=== PATIENT | male | born 1995 | race Caucasian/White ===

== ENCOUNTER 2016-11-06 11:05 | Emergency (ER) | payer SELFPAY ==
[~2016-11-06] VITALS: Ht 175.3 cm; Wt 57.0 kg
[~2016-11-06 11:05] MED LIST: ETOMIDATE 2MG/ML 10ML VIAL IV ONE
[2016-11-06] MEDS: MORPHINE SULFATE 4 MG/ML CPJ (NOT FOR IM USE) IV ONE (11:56)
[2016-11-06] MEDS: ONDANSETRON HCL 4MG/2ML VIAL IV ONE (13:11)
[2016-11-06 13:32] VITALS: BP 111/72
== END 2016-11-06 14:09 | disposition home or self-care (01) ==
LOC: ER 11:05
DX: S43.004A Unspecified dislocation of right shoulder joint, initial encounter (principal); F12.10 Cannabis abuse, uncomplicated; X58.XXXA Exposure to other specified factors, initial encounter; Y93.89 Activity, other specified; Y92.89 Other specified places as the place of occurrence of the external cause; Y99.8 Other external cause status
CPT/HCPCS: 23650; 73030; 96374; 96375; 99152; 99285; J2270; J2405; J3490; Z7610; L3670